=== PATIENT | female | born 1960 | race Caucasian/White ===

== ENCOUNTER 2017-12-04 18:36 | Inpatient (IN) | payer MEDICARE, OTHER ==
--- NOTE | 2017-12-04 19:52 | ED Physician Chart ---
ED Chief Complaint/HPI - Patient Information Time Seen:: 19:46 Chief Complaint:: agitation and aggressive behaviour from [place] History of Present Illness:: 57 yr old female with gerd htn ulcerative colitis and illeostoy with reddness at the skin near the illeostomy pt can not remember things has alzheimers Allergies:: Allergies Allergy/AdvReac Type Severity Reaction Status Date / Time ampicillin Allergy Verified 12/04/17 18:38 clopidogrel Allergy Verified 12/04/17 18:38 Penicillins [PCN] Allergy Verified 12/04/17 18:38 prochlorperazine Allergy Verified 12/04/17 18:38 Vitals:: Vital Signs - 8 hr 12/04/17 18:36 Temp 97.6 F HR 87 RR 18 BP 97/59 O2 Sat % 98 Historian:: Patient, Medical Records ED Review of Systems - Review of Systems General/Constitutional: No fever Skin: Skin lesions Head: No headache, No light-headedness Eyes: No loss of vision, No pain, No diplopia ENT: No earache, No nasal drainage, No sore throat, No tinnitus Neck: No neck pain, No swelling, No thyromegaly, No stiffness, No mass noted Cardio Vascular: No chest pain, No palpitations, No PND, No orthopnea, No edema Pulmonary: No SOB, No cough, No sputum, No wheezing GI: Other (ileostomy bag for ulcerative colitis with leaking of ileostomy bag contents at near bag with irritation of skin with blistering and reddness around the bag) G/U: No dysuria, No frequency, No hematuria ED Past Medical History - Past Medical History Past Medical History: Other (gerd ulcerative colitis alzheimers) Family Medical History - Family Member Mother History Unknown: Yes ED Physical Exam - Physical Examination General/Constitutional: Well-developed, well-nourished Head: Atraumatic Eyes: Lids, conjuctiva normal (macerated skin around the illeostomy bag) Neck: Nontender Respiratory: Nl effort/Exclusion Cardio Vascular: RRR GI: No tenderness/rebounding/guarding, No organomegaly, No hernia, Normal BS's, Nondistended, No mass/bruits, No McBurney tenderness Other GI comments:: ileostomy bag much fluid in bag with drainage around : No CVA tenderness Extremities: No tenderness or effusion, Full ROM, normal strength in all extremities, No edema, Normal digits & nails ED Septic Shock - . Is Septic Shock (SBP<90, OR Lactate>4 mmol\L) present?: No - <6hrs of presentation: Vital Signs: Vital Signs - 8 hr 12/04/17 18:36 Temp 97.6 F HR 87 RR 18 BP 97/59 O2 Sat % 98 ED Discharge Plan - Patient Disposition Instructions: Psychosis
[2017-12-04 21:21] LABS: HEMATOCRIT 38.3 % (41.0-60); MEAN CELL VOLUME 85.9 fl (81-100); MEAN CORPUSCULAR HGB CONC 33.8 pg (28.0-36.0); MEAN PLATELET VOLUME 8.6 fl; PLATELET COUNT 184 Th/cmm (150-400); RED BLOOD COUNT 4.47 Mil/cmm (3.80-5.10); RED CELL DISTRIBUTION WIDTH 14.4 % (11.5-20.0); WHITE BLOOD COUNT 9.8 Th/cmm (4.8-10.8)
[2017-12-04 21:26] LABS: MANUAL DIFF REQUIRED? YES
[2017-12-04 21:28] LABS: ALB/GLOB RATIO 1.1 (1.0-1.8); ALBUMIN 3.5 gm/dL (3.7-5.3); ALKALINE PHOSPHATASE 56 U/L (34-104); ANION GAP 13.2 (7.0-16.0); BILIRUBIN,TOTAL 0.2 mg/dL (0.3-1.0); BUN - UREA NITROGEN 21 mg/dL (7-25); CALCIUM SERUM 9.6 mg/dL (8.6-10.3); CARBON DIOXIDE 19.7 mEq/L (21.0-31.0); CHLORIDE 107 mEq/L (98-107); CREATININE - SERUM 0.8 mg/dL (0.6-1.2); GFR AFRICAN-AMERICAN > 60.0 ml/min (>90); GFR NON AFRICAN-AMERICAN > 60.0 ml/min; GLUCOSE 95 mg/dL (70-105); POTASSIUM SERUM 3.9 mEq/L (3.5-5.1); SGOT 10 U/L (13-39); SGPT/ALT 3 U/L (7-52); SODIUM SERUM 136 mEq/L (136-145); TOTAL PROTEIN,SERUM 6.6 gm/dL (6.0-8.3)
[2017-12-04 21:57] LABS: TOTAL CELLS COUNTED 100
[2017-12-04 21:58] LABS: BAND NEUTROPHILE 2 % (0-10); BASOPHIL 0 % (0-3); EOSINOPHIL 1 % (0-5); LYMPHOCYTE 39 % (20-50); MONOCYTE 3 % (2-10); NEUTROPHILS 55 % (40-80)
[2017-12-05 00:18] VITALS: BP 106/60
[2017-12-05] MEDS ORDERED: Maalox 30 mL Cup PO PRN (00:19)
[2017-12-05] MEDS ORDERED: Magnesium Hydroxide (MOM) 30 mL UDC PO PRN (00:19)
[2017-12-05] MEDS: Multivitamin Tab PO SCH (09:55)
--- NOTE | 2017-12-05 19:39 | Psychosocial Evaluation ---
DATE OF SERVICE: PSYCHIATRIC INITIAL EVALUATION AND MENTAL STATUS EXAM THE PATIENT'S AGE: 57. SEX: Female. PHYSICIAN: Dr. Centeno. CHIEF COMPLAINT: Agitation and aggressive behavior. HISTORY OF PRESENT ILLNESS: The patient is a 57-year-old female with history of what seems to be schizoaffective disorder. The patient has been easily agitated and has been aggressive in the [facility] where she lives. The patient has been hitting others. The patient also has been in irritable and angry mood and has not been able to follow directions. The patient also continue to be irritable and angry and she minimizes her problems. The patient also has an ileostomy and there is cellulitis and redness at the skin near the ileostomy area. She also has been forgetful. The patient has been taking Seroquel in a dose of 100 mg twice a day, but the patient is still agitated and is still in irritable mood. The patient also is taking Depakote 250 mg 3 times a day. PAST PSYCHIATRIC HISTORY: The patient has history of what seems to be schizoaffective disorder and she is taking Depakote and Seroquel. PAST MEDICAL HISTORY: The patient has an ileostomy as mentioned above. The patient has been compliant with taking her medications. SOCIAL HISTORY: The patient lives in [facility]. No known alcohol or drug use. ALLERGIES: PENICILLIN, AMPICILLIN, PROCHLORPERAZINE, CLOPIDOGREL. MENTAL STATUS EXAMINATION: The patient appears her stated age. Anxious. Currently is sedated and seems to be sleepy and did not answer much of my questions, but according to staff, the patient was agitated and irritable earlier. The patient did not answer questions regarding hallucinations or delusions or regarding suicide or homicide at this time because of her sedation. The patient is sedated and unable to assess the rest of the mental status exam. ASSESSMENT: Schizoaffective disorder, bipolar type, with psychotic features. TREATMENT PLAN: We will monitor the patient's behavior and condition closely. We will start individual as well as milieu psychotherapy. Also, because of her sedation, we will decrease Seroquel at this time to 50 mg twice a day. Also, we will get Depakote blood level and we will adjust psychotropic medications. ESTIMATED LENGTH OF STAY: 5-7 days. THE PATIENT'S STRENGTHS AND WEAKNESSES: The patient's strength is not clear at this time except that she seems to be in relatively fair health. Weaknesses is her poor impulse control and her agitation. AFTER DISCHARGE PLAN: Outpatient treatment and followup will continue as an outpatient. The patient also will return to [facility]. Outpatient treatment and followup will continue as an outpatient in [facility]. CRITERIA FOR DISCHARGE: The patient will not be psychotic or agitated and we will stabilize psychotropic medications. [facility]# [id number]
[2017-12-06] MEDS: Multivitamin Tab PO SCH (08:10)
[2017-12-06 15:36] LABS: URINE SOURCE CLEAN C
[2017-12-06 15:38] LABS: URINE BILIRUBIN NEGATIVE (NEGATIVE); URINE BLOOD NEGATIVE (NEGATIVE); URINE GLUCOSE (UA) NEGATIVE (NEGATIVE); URINE KETONE NEGATIVE (NEGATIVE); URINE LEUKOCYTE ESTERASE NEGATIVE (NEGATIVE); URINE NITRATE NEGATIVE (NEGATIVE); URINE PH 5.5 (4.6 - 8.0); URINE PROTEIN NEGATIVE (NEGATIVE); URINE UROBILINOGEN 0.2 E.U./dL (0.2 - 1.0)
[2017-12-06 15:45] LABS: URINE CLARITY CLEAR (CLEAR); URINE COLOR YELLOW; URINE MICROSCOPIC INDICATED? NO
--- NOTE | 2017-12-06 23:30 | History & Physical ---
ADMIT DATE: 12/05/2017 REASON FOR ADMISSION: Psychiatric disorder. HISTORY OF PRESENT ILLNESS: This is a 57-year-old female with underlying history of seizure disorder, admitted to [facility] for psychiatric illnesses by Dr. Centeno. Dr. Centeno requested medical HP for this patient. The patient at the time of evaluation says she is doing fine. No chest pain, no shortness of breath, no headache, no trouble with vision or trouble with speech, no fever, no chills, no diarrhea, no vomiting reported. PAST MEDICAL HISTORY: Seizure disorder Crohn's disease PAST SURGICAL HISTORY: Colostomy placement FAMILY HISTORY: Noncontributory. SOCIAL HISTORY: Lives at home. No alcohol or tobacco use. CURRENT MEDICATIONS: Per medical reconciliation. ALLERGIES: TO AMPICILLIN, CLOPIDOGREL, PENICILLIN, REVIEW OF SYSTEMS: As per HPI. Twelve-point system review appears negative. PHYSICAL EXAMINATION: VITAL SIGNS: Temperature 98.0, pulse 74, respirations 20, blood pressure 99/57. HEART: S1, S2 normal. LUNGS: Clear to auscultation. ABDOMEN: Soft, nontender. NEUROLOGIC: Alert, awake, follows commands. Grossly nonfocal. EXTREMITIES: No edema noted. AVAILABLE LABORATORY DATA: Have been reviewed. DIAGNOSES: 1. Seizure disorder. 2. Crohn's disease 3. psychiatric disorder. PLAN: Continue Depakote. Fall precautions will be given. Aspiration precautions will be given. Skin care will be done. Colostomy care The patient's condition and plan discussed with nursing staff. Thank you Dr. Centeno for allowing me to see this patient. [facility]# [id number] [facility]
--- NOTE | 2017-12-07 08:53 | Progress Notes ---
DATE: 12/06/2017 SUBJECTIVE: Chart reviewed and the patient interviewed. Also discussed the patient's condition with the staff and reviewed records and labs. The patient is still in irritable and angry mood. The patient also is still easily agitated. She also refused to take Seroquel, but she did take Depakote . The patient also is still pacing up and down the unit and needs redirections. On the other hand, the patient seems to be slightly less agitated . ASSESSMENT: The patient is still psychotic and agitated. TREATMENT PLAN: Continue to monitor her behavior and her condition closely. Also, continue to work on her irritability and her agitation and we will continue to follow up. Also, work on her compliance with taking her medications. JOB# [id number]
[2017-12-07] MEDS: Multivitamin Tab PO SCH (10:07)
--- NOTE | 2017-12-07 21:29 | General Progress Note ---
Subjective - Review of Systems Service Date: 12/07/17 Subjective: Patient seen and examined nursing staff reported patient has redness around her stoma Objective - Results Result Diagrams: 12/04/17 20:50 12/04/17 20:50 Recent Labs: Laboratory Last Values WBC 9.8 Th/cmm (4.8-10.8) 12/04/17 20:50 RBC 4.47 Mil/cmm (3.80-5.10) 12/04/17 20:50 Hgb 13.0 gm/dL (12-16) 12/04/17 20:50 Hct 38.3 % (41.0-60) L 12/04/17 20:50 MCV 85.9 fl (81-100) 12/04/17 20:50 MCH 29.0 pg (27.0-31.0) 12/04/17 20:50 MCHC Differential 33.8 pg (28.0-36.0) 12/04/17 20:50 RDW 14.4 % (11.5-20.0) 12/04/17 20:50 Plt Count 184 Th/cmm (150-400) 12/04/17 20:50 MPV 8.6 fl 12/04/17 20:50 Band Neutrophils % 2 % (0-10) 12/04/17 20:50 Neutrophils (Manual) 55 % (40-80) 12/04/17 20:50 Lymphocytes 39 % (20-50) 12/04/17 20:50 Monocytes 3 % (2-10) 12/04/17 20:50 Eosinophils 1 % (0-5) 12/04/17 20:50 Basophils 0 % (0-3) 12/04/17 20:50 Sodium 136 mEq/L (136-145) 12/04/17 20:50 Potassium 3.9 mEq/L (3.5-5.1) 12/04/17 20:50 Chloride 107 mEq/L (98-107) 12/04/17 20:50 Carbon Dioxide 19.7 mEq/L (21.0-31.0) L 12/04/17 20:50 Anion Gap 13.2 (7.0-16.0) 12/04/17 20:50 BUN 21 mg/dL (7-25) 12/04/17 20:50 Creatinine 0.8 mg/dL (0.6-1.2) 12/04/17 20:50 Est GFR ( Amer) > 60.0 ml/min (>90) 12/04/17 20:50 Est GFR (Non-Af Amer) > 60.0 ml/min 12/04/17 20:50 BUN/Creatinine Ratio 26.3 12/04/17 20:50 Glucose 95 mg/dL (70-105) 12/04/17 20:50 Calcium 9.6 mg/dL (8.6-10.3) 12/04/17 20:50 Total Bilirubin 0.2 mg/dL (0.3-1.0) L 12/04/17 20:50 AST 10 U/L (13-39) L 12/04/17 20:50 ALT 3 U/L (7-52) L 12/04/17 20:50 Alkaline Phosphatase 56 U/L (34-104) 12/04/17 20:50 Total Protein 6.6 gm/dL (6.0-8.3) 12/04/17 20:50 Albumin 3.5 gm/dL (3.7-5.3) L 12/04/17 20:50 Globulin 3.1 gm/dL 12/04/17 20:50 Albumin/Globulin Ratio 1.1 (1.0-1.8) 12/04/17 20:50 Urine Source CLEAN C 12/06/17 15:00 Urine Color YELLOW 12/06/17 15:00 Urine Clarity CLEAR (CLEAR) 12/06/17 15:00 Urine pH 5.5 (4.6 - 8.0) 12/06/17 15:00 Ur Specific [place] >= 1.030 (1.005-1.030) 12/06/17 15:00 Urine Protein NEGATIVE mg/dL (NEGATIVE) 12/06/17 15:00 Urine Glucose (UA) NEGATIVE mg/dL (NEGATIVE) 12/06/17 15:00 Urine Ketones NEGATIVE mg/dL (NEGATIVE) 12/06/17 15:00 Urine Blood NEGATIVE (NEGATIVE) 12/06/17 15:00 Urine Nitrate NEGATIVE (NEGATIVE) 12/06/17 15:00 Urine Bilirubin NEGATIVE (NEGATIVE) 12/06/17 15:00 Urine Urobilinogen 0.2 E.U./dL (0.2 - 1.0) 12/06/17 15:00 Ur Leukocyte Esterase NEGATIVE (NEGATIVE) 12/06/17 15:00 Valproic Acid 56.7 ug/mL (50.0-100.0) 12/05/17 13:05 - Physical Exam Vitals and I&O: Vital Signs Temp 97.0 F 12/07/17 15:48 Pulse 55 12/07/17 15:48 Resp 20 12/07/17 15:48 BP 102/80 12/07/17 15:48 Pulse Ox 99 12/07/17 15:48 Intake & Output 12/07/17 12/07/17 12/08/17 06:59 18:59 06:59 Intake Total 120 Balance 120 Weight (lbs) 98.43 kg Intake: Oral 120 Other: # Voids 1 # Bowel Movements 1 Stool Characteristics Liquid Active Medications: Current Medications Acetaminophen (Tylenol) 650 mg PO Q4HR PRN PRN Reason: Mild Pain / Temp above 100 Stop: 02/03/18 00:18 Acetaminophen/Hydrocodone Bitart ([place] 5mg/325mg) 1 tab PO Q6H PRN PRN Reason: Severe Pain Stop: 02/03/18 00:49 Al Hydrox/Mg Hydrox/Simethicone (Maalox) 30 ml PO Q4HR PRN PRN Reason: GI DISTRESS Stop: 02/03/18 00:18 Divalproex Sodium (Depakote Dr) 250 mg PO TID LETHA; Protocol Stop: 02/05/18 13:59 Last Admin: 12/07/17 14:14 Dose: 250 mg Doxycycline Hyclate (Vibramycin) 100 mg PO Q12HR LETHA Stop: 12/12/17 20:59 Last Admin: 12/07/17 10:06 Dose: 100 mg Lorazepam (Ativan) 0.5 mg PO Q4HR PRN; Protocol PRN Reason: Anxiety/Agitation Stop: 01/04/18 00:18 Last Admin: 12/06/17 17:24 Dose: 0.5 mg Lorazepam (Ativan) 0.5 mg PO TID LETHA; Protocol Stop: 02/03/18 08:59 Last Admin: 12/07/17 14:15 Dose: 0.5 mg Magnesium Hydroxide (Milk Of Magnesia) 30 ml PO HS PRN PRN Reason: Constipation Multivitamins/Vitamin C (Theragran) 1 tab PO DAILY [facility] Stop: 02/03/18 08:59 Last Admin: 12/07/17 10:07 Dose: 1 tab Mupirocin (Bactroban Oint) 1 appl NS BID [facility] Stop: 12/12/17 09:01 Last Admin: 12/07/17 16:23 Dose: 1 appl Quetiapine Fumarate (Seroquel) 50 mg PO BID [facility]; Protocol Stop: 02/05/18 16:59 Last Admin: 12/07/17 16:15 Dose: 50 mg Zolpidem Tartrate (Ambien) 5 mg PO HS PRN PRN Reason: Insomnia Stop: 02/03/18 00:18 Last Admin: 12/06/17 22:43 Dose: 5 mg Cardiovascular: Regular rate Lungs: Clear to auscultation Abdomen: Bowel sounds, Other (slight redness around her stoma noted) Assessment/Plan - Assessment Assessment: Colostomy site cellulitis Crohn's disease Seizure disorder - Plan Plan: Doxycycline started Colostomy care Depakote Plan of care discussed with nursing staff
[2017-12-07] MEDS: Hydrocodone/APAP 5mg/325mg Tab PO PRN (21:46)
--- NOTE | 2017-12-08 02:44 | Progress Notes ---
DATE: 12/07/[address] Centeno. This is a 57-year-old female who was admitted on 12/04/2017 with a history of schizoaffective disorder. She has been easily agitated, aggressive in the [facility] where she lives. She is hitting others. She has been very irritable, angry, hard to redirect, very poor insight, needing redirection. The patient continues to be labile, continues to easily agitated, unpredictable, impulsive at times refusing medications. Continues to have poor insight, continues to be psychotic and agitated. She may need to be released if she continues to use her medication, no side effects so far, cannot give me any reason why she is not taking her medication and we will continue to work with the patient in group therapy, milieu therapy, adjust medication as needed. JOB# [id number]
[2017-12-08] MEDS: Multivitamin Tab PO SCH (08:46)
[2017-12-08] MEDS: Hydrocodone/APAP 5mg/325mg Tab PO PRN (14:22)
--- NOTE | 2017-12-09 00:27 | Progress Notes ---
DATE: 12/08/[address] Centeno. SUMMARY: Case was discussed with staff of the patient and reviewed records. The patient continues to be easily agitated, continues to be refusing at times to take her medication. She has been, however, staying in bed, responding to internal stimuli. She continues to be easily irritable and agitated. No side effects to the medication reported. No sedation, no nausea, no extrapyramidal symptoms. Dr. Centeno increased her Seroquel to 50 mg twice a day with no side effects, no sedation, no nausea, no extrapyramidal symptoms. We will continue to work with the patient in group therapy and milieu therapy and adjust the medications as needed. JOB# [id number]
[2017-12-09] MEDS: Multivitamin Tab PO SCH ×2 (08:13→08:18)
[2017-12-09] MEDS: Hydrocodone/APAP 5mg/325mg Tab PO PRN (20:03)
[2017-12-10] MEDS: Multivitamin Tab PO SCH (08:38)
--- NOTE | 2017-12-10 10:10 | Progress Notes ---
DATE: 12/09/2017 Chart reviewed and the patient interviewed. Also, discussed the patient's condition with the staff and reviewed records and labs. The patient continued to be anxious and continued to be in a depressed mood. The patient also is still "scared to ." The patient also is still having episodes of demanding and episodes of yelling and screaming. She wants to be left alone at times. She also is sleeping only about 4 hours at night. Otherwise, the patient is compliant with taking her medications with no side effects of medications. ASSESSMENT: The patient is still depressed and still needs close monitoring. TREATMENT PLAN: Continue to monitor her behavior and her condition closely. Also, continue to work on her ineffective coping and followup. [facility]# [id number]
[2017-12-10] MEDS: Hydrocodone/APAP 5mg/325mg Tab PO PRN (16:37)
--- NOTE | 2017-12-10 21:51 | General Progress Note ---
Subjective - Review of Systems Service Date: 12/10/17 Subjective: Patient seen and examined no new concern reported Objective - Results Result Diagrams: 12/04/17 20:50 12/04/17 20:50 Recent Labs: Laboratory Last Values WBC 9.8 Th/cmm (4.8-10.8) 12/04/17 20:50 RBC 4.47 Mil/cmm (3.80-5.10) 12/04/17 20:50 Hgb 13.0 gm/dL (12-16) 12/04/17 20:50 Hct 38.3 % (41.0-60) L 12/04/17 20:50 MCV 85.9 fl (81-100) 12/04/17 20:50 MCH 29.0 pg (27.0-31.0) 12/04/17 20:50 MCHC Differential 33.8 pg (28.0-36.0) 12/04/17 20:50 RDW 14.4 % (11.5-20.0) 12/04/17 20:50 Plt Count 184 Th/cmm (150-400) 12/04/17 20:50 MPV 8.6 fl 12/04/17 20:50 Band Neutrophils % 2 % (0-10) 12/04/17 20:50 Neutrophils (Manual) 55 % (40-80) 12/04/17 20:50 Lymphocytes 39 % (20-50) 12/04/17 20:50 Monocytes 3 % (2-10) 12/04/17 20:50 Eosinophils 1 % (0-5) 12/04/17 20:50 Basophils 0 % (0-3) 12/04/17 20:50 Sodium 136 mEq/L (136-145) 12/04/17 20:50 Potassium 3.9 mEq/L (3.5-5.1) 12/04/17 20:50 Chloride 107 mEq/L (98-107) 12/04/17 20:50 Carbon Dioxide 19.7 mEq/L (21.0-31.0) L 12/04/17 20:50 Anion Gap 13.2 (7.0-16.0) 12/04/17 20:50 BUN 21 mg/dL (7-25) 12/04/17 20:50 Creatinine 0.8 mg/dL (0.6-1.2) 12/04/17 20:50 Est GFR ( Amer) > 60.0 ml/min (>90) 12/04/17 20:50 Est GFR (Non-Af Amer) > 60.0 ml/min 12/04/17 20:50 BUN/Creatinine Ratio 26.3 12/04/17 20:50 Glucose 95 mg/dL (70-105) 12/04/17 20:50 Calcium 9.6 mg/dL (8.6-10.3) 12/04/17 20:50 Total Bilirubin 0.2 mg/dL (0.3-1.0) L 12/04/17 20:50 AST 10 U/L (13-39) L 12/04/17 20:50 ALT 3 U/L (7-52) L 12/04/17 20:50 Alkaline Phosphatase 56 U/L (34-104) 12/04/17 20:50 Total Protein 6.6 gm/dL (6.0-8.3) 12/04/17 20:50 Albumin 3.5 gm/dL (3.7-5.3) L 12/04/17 20:50 Globulin 3.1 gm/dL 12/04/17 20:50 Albumin/Globulin Ratio 1.1 (1.0-1.8) 12/04/17 20:50 Urine Source CLEAN C 12/06/17 15:00 Urine Color YELLOW 12/06/17 15:00 Urine Clarity CLEAR (CLEAR) 12/06/17 15:00 Urine pH 5.5 (4.6 - 8.0) 12/06/17 15:00 Ur Specific [place] >= 1.030 (1.005-1.030) 12/06/17 15:00 Urine Protein NEGATIVE mg/dL (NEGATIVE) 12/06/17 15:00 Urine Glucose (UA) NEGATIVE mg/dL (NEGATIVE) 12/06/17 15:00 Urine Ketones NEGATIVE mg/dL (NEGATIVE) 12/06/17 15:00 Urine Blood NEGATIVE (NEGATIVE) 12/06/17 15:00 Urine Nitrate NEGATIVE (NEGATIVE) 12/06/17 15:00 Urine Bilirubin NEGATIVE (NEGATIVE) 12/06/17 15:00 Urine Urobilinogen 0.2 E.U./dL (0.2 - 1.0) 12/06/17 15:00 Ur Leukocyte Esterase NEGATIVE (NEGATIVE) 12/06/17 15:00 Valproic Acid 56.7 ug/mL (50.0-100.0) 12/05/17 13:05 - Physical Exam Vitals and I&O: Vital Signs Temp 97.2 F 12/09/17 20:00 Pulse 71 12/09/17 20:00 Resp 19 12/09/17 20:00 BP 148/72 12/09/17 20:00 Pulse Ox 97 12/09/17 20:00 Intake & Output 12/10/17 12/10/17 12/11/17 06:59 18:59 06:59 Intake Total 120 Output Total 100 Balance 20 Intake: Oral 120 Output: Stool 100 Other: # Voids 2 Stool Characteristics Liquid Liquid Soft Active Medications: Current Medications Acetaminophen (Tylenol) 650 mg PO Q4HR PRN PRN Reason: Mild Pain / Temp above 100 Stop: 02/03/18 00:18 Last Admin: 12/07/17 23:42 Dose: 650 mg Acetaminophen/Hydrocodone Bitart ([place] 5mg/325mg) 1 tab PO Q6H PRN PRN Reason: Severe Pain Stop: 02/03/18 00:49 Last Admin: 12/10/17 16:37 Dose: 1 tab Al Hydrox/Mg Hydrox/Simethicone (Maalox) 30 ml PO Q4HR PRN PRN Reason: GI DISTRESS Stop: 02/03/18 00:18 Divalproex Sodium (Depakote Dr) 250 mg PO TID LETHA; Protocol Stop: 02/05/18 13:59 Last Admin: 12/10/17 20:59 Dose: 250 mg Doxycycline Hyclate (Vibramycin) 100 mg PO Q12HR LETHA Stop: 12/12/17 20:59 Last Admin: 12/10/17 20:59 Dose: 100 mg Lorazepam (Ativan) 0.5 mg PO Q4HR PRN; Protocol PRN Reason: Anxiety/Agitation Stop: 01/04/18 00:18 Last Admin: 12/09/17 22:47 Dose: 0.5 mg Lorazepam (Ativan) 0.5 mg PO TID LETHA; Protocol Stop: 02/03/18 08:59 Last Admin: 12/10/17 20:59 Dose: 0.5 mg Magnesium Hydroxide (Milk Of Magnesia) 30 ml PO HS PRN PRN Reason: Constipation Multivitamins/Vitamin C (Theragran) 1 tab PO DAILY [facility] Stop: 02/03/18 08:59 Last Admin: 12/10/17 08:38 Dose: 1 tab Mupirocin (Bactroban Oint) 1 appl NS BID LETHA Stop: 12/12/17 09:01 Last Admin: 12/10/17 16:36 Dose: Not Given Quetiapine Fumarate (Seroquel) 50 mg PO BID [facility]; Protocol Stop: 02/05/18 16:59 Last Admin: 12/10/17 16:36 Dose: Not Given Zolpidem Tartrate (Ambien) 5 mg PO HS PRN PRN Reason: Insomnia Stop: 02/03/18 00:18 Last Admin: 12/10/17 00:05 Dose: 5 mg Cardiovascular: Regular rate Lungs: Clear to auscultation Abdomen: Bowel sounds, Soft, Other (slight redness around her stoma noted) Assessment/Plan - Assessment Assessment: Colostomy site cellulitis Crohn's disease Seizure disorder - Plan Plan: Doxycycline started Colostomy care Depakote Plan of care discussed with nursing staff Nutritional Asmnt/Malnutr-PDOC - Dietary Evaluation Malnutrition Findings (Please click <Entered> for more info): Nutritional Asmnt/Malnutrition Start: 12/09/17 13: 44 Text: Status: Complete Freq: Protocol: Document 12/09/17 13:44 LCHENG (Rec: 12/09/17 13:51 [email or web address] [email or web address]) Nutritional Asmnt/Malnutrition Patient General Information Nutritional Screening Moderate Risk Diagnosis psychosis Pertinent Medical Hx/Surgical Hx seizure disorder, crohn's disease, colostomy placement Subjective Information Pt seen lying in bed at time of visit. Nurse was changing her colostomy bad. Pt was very anxious and confused. Pt stated she does not want to eat anything. Per EMR PO intake 50-100% in the past two days. Pt has no teeth noted. Current Diet Order/ Nutrition Support [facility] soft ground, low fat, ALICIA Pertinent Medications theragran, serqoeul Pertinent Labs 12/04 Alb 3.5 Nutritional Hx/Data Height 1.6 m Height (Calculated Centimeters) 160.0 Current Weight (lbs) 98.43 kg Weight (Calculated Kilograms) 98.4 Weight (Calculated Grams) 45346.5 Morris Body Weight 115 Body Mass Index (BMI) 38.4 Weight Status Obese GI Symptoms GI Symptoms None Last BM 12/07 Difficult in: None Skin Integrity/Comment: redness at colostomy site Estimated Nutritional Goals BEE in Kcals: Adj wt of IBW Calories/Kcals/Kg 25-30 Kcals Calculated [id number] Protein: Adj wt of IBW Protein g/k Protein Calculated 64 Fluid: ml 1600-1920ml (1ml/kcal) Nutritional Problem No current Nutrition Prob Problem N/A Malnutrition Alert Is there a minimum of two criteria No selected? Query Text:Check all the applicable criteria. A minimum of two criteria are recommended for diagnosis of either severe or non-severe malnutrition. Malnutrition Related to Morbid Obesity Malnutrition related to morbid obesity No Intervention/Recommendation Comments 1. Continue with current diet as ordered. Assist pt with meals as needed. 2. Monitor PO intake, wt, labs and skin integrity 3. F/U as low risk in 7 days, 12/16, PO check 12/11 Expected Outcomes/Goals Expected Outcomes/Goals 1. PO intake to meet at least 75% of nutritional needs. 2. Wt stability, skin to remain intact, labs to approach WNL.
[2017-12-11] MEDS: Multivitamin Tab PO SCH (09:39)
--- NOTE | 2017-12-11 18:50 | Progress Notes ---
DATE: 12/10/2017 SUBJECTIVE: Chart reviewed and the patient interviewed. Also discussed the patient's condition with the staff and reviewed the records and labs. The patient continued to be paranoid and she is suspicious and continued to talk about her ileostomy and that it is leaking while there is no leak happening. The patient also is still agitated and continued to call her family and complained to her family for nothing specific. The patient also refused to take her morning medications yesterday, but she did take the medications in the evening. She also is still restless and she is still in angry mood. Otherwise, when the patient did take medications, no side effects of medications. ASSESSMENT: The patient is still agitated and psychotic. TREATMENT PLAN: Continue to monitor her behavior and her condition closely. Also, continue to work on her poor impulse control and her ineffective coping and also on her compliance with taking her medications. [facility]# [id number]
[2017-12-12] MEDS: Multivitamin Tab PO SCH (09:15)
[2017-12-12] MEDS: Hydrocodone/APAP 5mg/325mg Tab PO PRN (20:40)
--- NOTE | 2017-12-12 21:36 | Progress Notes ---
DATE: 12/12/2017 Case was discussed with staff of the patient, reviewed records. I talked to the patient for a long time because I was ____ back and forth. She wanted candy. Apparently, she was talking to her sister earlier, got upset with her and told her not to bring the candy to her anymore. States she is not asking staff for candy. She is very forgetful. She said that nobody ever saw her, no psychiatrist and I did see her at least twice and Dr. Centeno has been seeing her daily and so I had been seeing her when he was not available. She gets confused. She gets sundowning, continues to call her family, at times refusing to take her medication. She has been so far compliant. No side effects with the medication reported. No sedation, no nausea, no extrapyramidal symptoms. I will be adding Aricept to her medication because of her poor memory. I will continue outpatient group therapy, milieu therapy and adjust the medication as needed. JOB# [id number]
--- NOTE | 2017-12-13 03:27 | Progress Notes ---
DATE: 12/11/2017 SUBJECTIVE: Chart reviewed and the patient interviewed. Also discussed the patient's condition with the staff and reviewed records and labs. The patient continues to be very irritable and is still preoccupied with her ileostomy bag and thinking that there is a leak from the bag, although there is nothing according to staff, who check it several times and everyday. The patient also is still suspicious and paranoid and easily agitated especially when her demands not met. She also still had a labile affect and depressed mood. Otherwise, the patient is compliant with taking her medications with no side effects of medications. ASSESSMENT: The patient is still agitated. LABS: Depakote blood level that was done on 12/05 came back to be 56.7, which is within therapeutic level. TREATMENT PLAN: We will increase Seroquel to 50 mg 3 times a day. Also, continue working on her poor impulse control and her agitation and continue adjusting psychotropic medications and followup with her. Also, working on placement issue and on discharge plans. JOB# [id number]
[2017-12-13] MEDS: Multivitamin Tab PO SCH ×2 (09:08→12:18)
--- NOTE | 2017-12-13 20:26 | Progress Notes ---
DATE: 12/13/2017 Case was discussed with staff of the patient, reviewed records. The patient is continuing the medication. The patient continues to be unpredictable, impulsive, restless, paranoid. Continues to be forgetful, answering questions over and over again. Continues to be calling her family, telling them different things, consider seeing things. She believes no psychiatrist felt that she has been here and I have talked to her many times covering for Dr. Centeno. Dr. Centeno talked to her. Unable to make a safe plan for her self-care, very poor insight. She is diaphoretic because of her age and her medications. We will continue outpatient group therapy, milieu therapy, adjust the medication as needed. [facility]# [id number]
[2017-12-14] MEDS: Hydrocodone/APAP 5mg/325mg Tab PO PRN (02:00)
--- NOTE | 2017-12-14 07:35 | Progress Notes ---
DATE: 12/14/2017 SUBJECTIVE: Chart reviewed and the patient interviewed. Also discussed the patient's condition with the staff and reviewed records and labs. The patient is still easily agitated and is still in irritable mood. The patient also still has episodes of screaming and yelling. She also tried to take off her ileostomy bag yesterday and the staff had to direct her and explained to her the importance of not touching the bag and that her behavior especially related to the bag can result in leaking. Slightly easier to redirect her, but she still gets very anxious. The patient continued to comply with taking Seroquel and Depakote with no side effects. ASSESSMENT: The patient is still agitated and psychotic. TREATMENT PLAN: Continue to monitor her behavior and her condition closely. Also, continue adjusting psychotropic medications and work on behavioral modification. JOB# [id number]
[2017-12-14] MEDS: Multivitamin Tab PO SCH (09:28)
--- NOTE | 2017-12-15 07:30 | Progress Notes ---
DATE: SUBJECTIVE: Chart reviewed and the patient interviewed. Also discussed the patient's condition with the staff and reviewed records and labs. The patient is still anxious and is still easily irritable and agitated. The patient also is still preoccupied with her ileostomy bag and continued to assure patient about her ileostomy bag and that it is not leaking. Still at times, the patient wants to take the ileostomy bag out. Continue to confront the patient with her behavior and also continue to work on reassurance. On the other hand, the patient continued to take her psychotropic medications with no side effects. ASSESSMENT: The patient is still agitated. TREATMENT PLAN: Continue monitoring her behavior closely and continue to work on her ineffective coping and followup. [facility]# [id number]
[2017-12-15] MEDS: Multivitamin Tab PO SCH (09:01)
[2017-12-15] MEDS: Hydrocodone/APAP 5mg/325mg Tab PO PRN (21:28)
[2017-12-16] MEDS: Multivitamin Tab PO SCH (09:49)
[2017-12-17] MEDS: Hydrocodone/APAP 5mg/325mg Tab PO PRN (00:56)
--- NOTE | 2017-12-17 01:17 | Progress Notes ---
DATE: SUBJECTIVE: Chart reviewed and the patient interviewed. Also discussed the patient's condition with the staff and reviewed records and labs. The patient is still obsessed with her ileostomy bag and is still thinking that the bag is leaking. The patient also is isolative, withdrawn, and she is still interacting minimally with others. She also is still confused. Otherwise, the patient is compliant with taking her medications with no side effects of medications. ASSESSMENT: The patient is still agitated and is still anxious. TREATMENT PLAN: Continue monitoring her behavior and her condition closely. Also continue adjusting psychotropic medications. Also, working on discharge plans and on placement issue. JOB# [id number]
--- NOTE | 2017-12-17 11:16 | General Progress Note ---
Subjective - Review of Systems Service Date: 12/15/17 Subjective: Patient seen and examined no new concern reported Objective - Results Result Diagrams: 12/04/17 20:50 12/04/17 20:50 Recent Labs: Laboratory Last Values WBC 9.8 Th/cmm (4.8-10.8) 12/04/17 20:50 RBC 4.47 Mil/cmm (3.80-5.10) 12/04/17 20:50 Hgb 13.0 gm/dL (12-16) 12/04/17 20:50 Hct 38.3 % (41.0-60) L 12/04/17 20:50 MCV 85.9 fl (81-100) 12/04/17 20:50 MCH 29.0 pg (27.0-31.0) 12/04/17 20:50 MCHC Differential 33.8 pg (28.0-36.0) 12/04/17 20:50 RDW 14.4 % (11.5-20.0) 12/04/17 20:50 Plt Count 184 Th/cmm (150-400) 12/04/17 20:50 MPV 8.6 fl 12/04/17 20:50 Band Neutrophils % 2 % (0-10) 12/04/17 20:50 Neutrophils (Manual) 55 % (40-80) 12/04/17 20:50 Lymphocytes 39 % (20-50) 12/04/17 20:50 Monocytes 3 % (2-10) 12/04/17 20:50 Eosinophils 1 % (0-5) 12/04/17 20:50 Basophils 0 % (0-3) 12/04/17 20:50 Sodium 136 mEq/L (136-145) 12/04/17 20:50 Potassium 3.9 mEq/L (3.5-5.1) 12/04/17 20:50 Chloride 107 mEq/L (98-107) 12/04/17 20:50 Carbon Dioxide 19.7 mEq/L (21.0-31.0) L 12/04/17 20:50 Anion Gap 13.2 (7.0-16.0) 12/04/17 20:50 BUN 21 mg/dL (7-25) 12/04/17 20:50 Creatinine 0.8 mg/dL (0.6-1.2) 12/04/17 20:50 Est GFR ( Amer) > 60.0 ml/min (>90) 12/04/17 20:50 Est GFR (Non-Af Amer) > 60.0 ml/min 12/04/17 20:50 BUN/Creatinine Ratio 26.3 12/04/17 20:50 Glucose 95 mg/dL (70-105) 12/04/17 20:50 Calcium 9.6 mg/dL (8.6-10.3) 12/04/17 20:50 Total Bilirubin 0.2 mg/dL (0.3-1.0) L 12/04/17 20:50 AST 10 U/L (13-39) L 12/04/17 20:50 ALT 3 U/L (7-52) L 12/04/17 20:50 Alkaline Phosphatase 56 U/L (34-104) 12/04/17 20:50 Total Protein 6.6 gm/dL (6.0-8.3) 12/04/17 20:50 Albumin 3.5 gm/dL (3.7-5.3) L 12/04/17 20:50 Globulin 3.1 gm/dL 12/04/17 20:50 Albumin/Globulin Ratio 1.1 (1.0-1.8) 12/04/17 20:50 Urine Source CLEAN C 12/06/17 15:00 Urine Color YELLOW 12/06/17 15:00 Urine Clarity CLEAR (CLEAR) 12/06/17 15:00 Urine pH 5.5 (4.6 - 8.0) 12/06/17 15:00 Ur Specific [place] >= 1.030 (1.005-1.030) 12/06/17 15:00 Urine Protein NEGATIVE mg/dL (NEGATIVE) 12/06/17 15:00 Urine Glucose (UA) NEGATIVE mg/dL (NEGATIVE) 12/06/17 15:00 Urine Ketones NEGATIVE mg/dL (NEGATIVE) 12/06/17 15:00 Urine Blood NEGATIVE (NEGATIVE) 12/06/17 15:00 Urine Nitrate NEGATIVE (NEGATIVE) 12/06/17 15:00 Urine Bilirubin NEGATIVE (NEGATIVE) 12/06/17 15:00 Urine Urobilinogen 0.2 E.U./dL (0.2 - 1.0) 12/06/17 15:00 Ur Leukocyte Esterase NEGATIVE (NEGATIVE) 12/06/17 15:00 Valproic Acid 56.7 ug/mL (50.0-100.0) 12/05/17 13:05 - Physical Exam Vitals and I&O: Vital Signs Temp 97.6 F 12/17/17 06:15 Pulse 64 12/17/17 06:15 Resp 18 12/17/17 06:15 BP 102/58 12/17/17 06:15 Pulse Ox 95 12/17/17 06:15 Intake & Output 12/16/17 12/17/17 12/17/17 18:59 06:59 18:59 Intake Total 1200 Balance 1200 Intake: Oral 1200 Other: # Voids 3 Stool Characteristics Soft Soft Active Medications: Current Medications Acetaminophen (Tylenol) 650 mg PO Q4HR PRN PRN Reason: Mild Pain / Temp above 100 Stop: 02/03/18 00:18 Last Admin: 12/07/17 23:42 Dose: 650 mg Acetaminophen/Hydrocodone Bitart ([place] 5mg/325mg) 1 tab PO Q6H PRN PRN Reason: Severe Pain Stop: 02/03/18 00:49 Last Admin: 12/17/17 00:56 Dose: 1 tab Al Hydrox/Mg Hydrox/Simethicone (Maalox) 30 ml PO Q4HR PRN PRN Reason: GI DISTRESS Stop: 02/03/18 00:18 Last Admin: 12/16/17 12:27 Dose: 30 ml Divalproex Sodium (Depakote Dr) 250 mg PO TID LETHA; Protocol Stop: 02/05/18 13:59 Last Admin: 12/17/17 10:55 Dose: 250 mg Donepezil HCl (Aricept) 5 mg PO HS LETHA Stop: 02/10/18 20:59 Last Admin: 12/16/17 21:37 Dose: 5 mg Lorazepam (Ativan) 0.5 mg PO Q4HR PRN; Protocol PRN Reason: Anxiety/Agitation Stop: 01/04/18 00:18 Last Admin: 12/16/17 16:00 Dose: 0.5 mg Lorazepam (Ativan) 0.5 mg PO TID LETHA; Protocol Stop: 02/03/18 08:59 Last Admin: 12/17/17 10:55 Dose: 0.5 mg Magnesium Hydroxide (Milk Of Magnesia) 30 ml PO HS PRN PRN Reason: Constipation Multivitamins/Vitamin C (Theragran) 1 tab PO DAILY LETHA Stop: 02/03/18 08:59 Last Admin: 12/16/17 09:49 Dose: 1 tab Quetiapine Fumarate (Seroquel) 50 mg PO TID LETHA; Protocol Stop: 02/09/18 08:59 Last Admin: 12/17/17 10:55 Dose: 50 mg Zolpidem Tartrate (Ambien) 5 mg PO HS PRN PRN Reason: Insomnia Stop: 02/03/18 00:18 Last Admin: 12/16/17 21:39 Dose: 5 mg Cardiovascular: Regular rate Lungs: Clear to auscultation Abdomen: Bowel sounds, Soft, Other (redness around stoma site is better) Assessment/Plan - Assessment Assessment: Colostomy site cellulitis Crohn's disease Seizure disorder Psych disorder - Plan Plan: Doxycycline Colostomy care Depakote Plan of care discussed with nursing staff Nutritional Asmnt/Malnutr-PDOC - Dietary Evaluation Malnutrition Findings (Please click <Entered> for more info): Nutritional Asmnt/Malnutrition Start: 12/09/17 13: 44 Text: Status: Complete Freq: Protocol: Document 12/09/17 13:44 LCHENG (Rec: 12/09/17 13:51 [id number] [id number]) Nutritional Asmnt/Malnutrition Patient General Information Nutritional Screening Moderate Risk Diagnosis psychosis Pertinent Medical Hx/Surgical Hx seizure disorder, crohn's disease, colostomy placement Subjective Information Pt seen lying in bed at time of visit. Nurse was changing her colostomy bad. Pt was very anxious and confused. Pt stated she does not want to eat anything. Per EMR PO intake 50-100% in the past two days. Pt has no teeth noted. Current Diet Order/ Nutrition Support mech soft ground, low fat, ALICIA Pertinent Medications theragran, serqoeul Pertinent Labs 12/04 Alb 3.5 Nutritional Hx/Data Height 1.6 m Height (Calculated Centimeters) 160.0 Current Weight (lbs) 98.43 kg Weight (Calculated Kilograms) 98.4 Weight (Calculated Grams) 19520.5 [place] Body Weight 115 Body Mass Index (BMI) 38.4 Weight Status Obese GI Symptoms GI Symptoms None Last BM 12/07 Difficult in: None Skin Integrity/Comment: redness at colostomy site Estimated Nutritional Goals BEE in Kcals: Adj wt of IBW Calories/Kcals/Kg 25-30 Kcals Calculated 1617-6329 Protein: Adj wt of IBW Protein g/k Protein Calculated 64 Fluid: ml 1600-1920ml (1ml/kcal) Nutritional Problem No current Nutrition Prob Problem N/A Malnutrition Alert Is there a minimum of two criteria No selected? Query Text:Check all the applicable criteria. A minimum of two criteria are recommended for diagnosis of either severe or non-severe malnutrition. Malnutrition Related to Morbid Obesity Malnutrition related to morbid obesity No Intervention/Recommendation Comments 1. Continue with current diet as ordered. Assist pt with meals as needed. 2. Monitor PO intake, wt, labs and skin integrity 3. F/U as low risk in 7 days, 12/16, PO check 12/11 Expected Outcomes/Goals Expected Outcomes/Goals 1. PO intake to meet at least 75% of nutritional needs. 2. Wt stability, skin to remain intact, labs to approach WNL.
[2017-12-17] MEDS: Multivitamin Tab PO SCH (11:26)
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
== END 2017-12-17 15:00 | DRG 885 ==
LOC: ER 18:36 → GERO 22:15 → GERO2 12-05 00:15
PROVIDERS: ADMIT Psychiatry & Neurology Psychiatry; ATTEND Psychiatry & Neurology Psychiatry
DX: F25.0 Schizoaffective disorder, bipolar type (principal); Z93.2 Ileostomy status; K50.90 Crohn's disease, unspecified, without complications; L03.311 Cellulitis of abdominal wall; F29 Unspecified psychosis not due to a substance or known physiological condition; G40.909 Epilepsy, unspecified, not intractable, without status epilepticus; Z88.1 Allergy status to other antibiotic agents; Z88.0 Allergy status to penicillin; Z88.8 Allergy status to other drugs, medicaments and biological substances; Z93.3 Colostomy status
CPT/HCPCS: 36415-UA; 80053-TC; 80164-TC; 81003-TC; 85007-TC; 85025-TC; 85027-TC; J1885; J2060; Z7610